=== PATIENT | female | born 2000 | race Caucasian/White ===

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

== ENCOUNTER 2020-09-25 14:53 | Emergency (ER) | payer BC ==
[2020-09-25 15:08] VITALS: BP 115/79; PULSE 62
[2020-09-25] MEDS ORDERED: Sodium Chloride 0.9% 10 ML Syringe FLUSH PRN (15:39)
--- NOTE | 2020-09-25 16:45 | EDM.PDOC ---
ED HPI GENERAL MEDICAL PROBLEM - General Chief Complaint: [employer] Problem Stated Complaint: MISCARRIAGE PASSING LARGE CLOTS Time Seen by Provider: 09/25/20 15:38 Source of Information: Reports: Patient History Limitations: Reports: No Limitations - History of Present Illness INITIAL COMMENTS - FREE TEXT/NARRATIVE: 19-year-old female presents to the emergency department with reports of a miscarriage. The patient states that the first day of her last period is June 20, 2020. The patient states that she is approximately 11 weeks along however this would put her at 14 weeks gestation. She states that she was in to see her PROGRAM ADVOCATE, Dr. Blas, on September 09 and ultrasound was not able to find a heartbeat. At that time Dr. Ledbetter notified her that she would likely miscarry in the next week to 2 weeks. The patient states she started cramping and vaginal bleeding last evening at around 4:00. She states that later in the evening she started passing large clots approximately the size of a grapefruit. She states she is certain that she did pass the fetus but has continued with the heavy bleeding and passing of large clots since. She states that she has been saturating a pad once every 45 minutes since then and did call her [employer] and was told to come to the emergency room. She denies any fever, chills, nausea, vomiting or diarrhea. She does admit to feeling dizzy when up and ambulating. She denies any chest pain or palpitations. She denies any urinary symptoms. Lower Abdominal Pain Score (Numeric/FACES): 6 - Related Data Allergies Allergy/AdvReac Type Severity Reaction Status Date / Time No Known Allergies Allergy Verified 09/25/20 15:04 Home Meds: Home Meds . 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 ED EXAM - Physical Exam Exam: See Below Exam Limited By: No Limitations General Appearance: Alert, WD/WN, No Apparent Distress Ears: Normal External Exam, Hearing Grossly Normal Nose: Normal Inspection Throat/Mouth: Normal Inspection, Normal Lips, Normal Voice, No Airway Compromise Head: Atraumatic Neck: Normal Inspection, Supple Respiratory/Chest: No Respiratory Distress, Lungs Clear, Normal Breath Sounds, No Accessory Muscle Use, Chest Non-Tender Cardiovascular: Normal Peripheral Pulses, Regular Rate, Rhythm, No Murmur GI/Abdominal Exam: Normal Bowel Sounds, Soft, Non-Tender, No Distention Rectal Exam: Deferred (Female) Exam: Normal Bimanual Exam, Normal External Exam, Vaginal Bleeding, Other (Vaginal bleeding is controlled was able to clean the vaginal canal and see the cervical os. There does appear to be a clot at the cervical os at this time.). No: Normal Speculum Exam Back Exam: Normal Inspection Extremities: Normal Inspection, No Pedal Edema, Normal Capillary Refill Neurological: Alert, Oriented, Normal Cognition Psychiatric: Normal Affect, Normal Mood Skin Exam: Warm, Dry, Intact, Normal Color, No Rash Lymphatic: No Adenopathy Course - Vital Signs Text/Narrative:: Patient presents with complaints of having a miscarriage. She states she has been to see her [employer] on September 09, 2020 and was told that she likely would not miscarry within the next week or 2. She did develop cramping and heavy vaginal bleeding that started late yesterday afternoon. She states that she has been saturating a pad once every 45 minutes since as well as passing large clots. She states she did pass the fetus last evening. She has been taking ibuprofen for the cramping however she states it only lasts about 30 minutes. I have ordered a CBC, transvaginal ultrasound, ordered for a saline lock, hCG quantitative, and ABO/Rh type. Last Recorded V/S: Last Vital Signs Temp 96.7 F L 09/25/20 15:04 Pulse 62 09/25/20 15:04 Resp 18 09/25/20 15:04 BP 115/79 09/25/20 15:04 Pulse Ox 100 09/25/20 15:04 - Orders/Labs/Meds Orders: Active Orders 24 hr Category Date Time Status PATIENT RETYPE [BBK] Routine Lab 09/25/20 17:54 Ordered Sodium Chloride 0.9% [Saline Flush] Med 09/25/20 15:39 Active 10 ml FLUSH ASDIRECTED PRN Saline Lock Insert [OM.PC] Stat Oth 09/25/20 15:39 Ordered Medication Orders Sodium Chloride (Sodium Chloride 0.9% 10 Ml Syringe) 10 ml FLUSH ASDIRECTED PRN PRN Reason: Keep Vein Open Last Admin: 09/25/20 15:56 Dose: 10 ml Documented by: BAILEY Labs: Laboratory Tests 09/25/20 09/25/20 09/25/20 Range/Units 15:53 15:53 15:53 WBC 7.27 (3.98-10.04) K/mm3 RBC 4.03 (3.98-5.22) M/mm3 Hgb 11.9 (11.2-15.7) gm/dl Hct 36.8 (34.1-44.9) % MCV 91.3 (79.4-94.8) fl MCH 29.5 (25.6-32.2) pg MCHC 32.3 (32.2-35.5) g/dl RDW Std Deviation 43.6 (36.4-46.3) fL Plt Count 179 L (182-369) K/mm3 MPV 10.4 (9.4-12.3) fl HCG, Quant 2931.0 mIU/mL Blood Type O POSITIVE Meds: Medications Generic Name Dose Route Start Last Admin Trade Name Freq PRN Reason Stop Dose Admin Sodium Chloride 10 ml 09/25/20 15:39 09/25/20 15:56 Sodium Chloride 0.9% 10 Ml Syringe FLUSH 10 ml ASDIRECTED PRN Administration Keep Vein Open - Re-Assessments/Exams Free Text/Narrative Re-Assessment/Exam: 09/25/20 17:13 Transvaginal ultrasound radiologist impression: 1. Findings felt compatible with blood and blood clot within the endometrial and endocervical canal. No intrauterine gestational sac is seen. 2. Mild amount of fluid within the pelvis. 3. No additional abnormality is appreciated within the adnexa. I have performed a routine pelvic exam. The patient has a moderate amount of bleeding however I was able to clean the vaginal canal and easily see the cervix. There does appear to be a clot in the cervical os and no active bleeding is noted. 09/25/20 17:15 Hematology reveals a WBC of 7.27, hemoglobin 11.9, hematocrit 36.8, platelet count 179, hCG quantitative 2931.[address] Ledbetter and notified her of the lab results as well as the results of the pelvic exam. The patient has only needed to change her pad 1 time since she has been here. Patient has been here approximately an hour and 1/2 to 2 hours. At this time the bleeding has seemed to slow down and patient's labs and vitals have been stable. Patient has not been tachycardic while in the emergency department. Dr. Ledbetter states at this time it would be safe to discharge her to home with return precautions. I am still waiting on an ABO/Rh type. Once I have those results back I will likely discharge her to home. 09/25/20 17:56 Patient is O+. She will be discharged to home. Departure - Departure Time of Disposition: 17:56 Disposition: Home, Self-Care 01 Clinical Impression: Miscarriage - Discharge Information Instructions: Miscarriage, [id number], Managing Loss Referrals: Judy Ledbetter MD [Primary Care Provider] - Forms: ED Department Discharge Additional Instructions: You were seen in the emergency department today with a miscarriage. Labs, and an ultrasound were completed. At this time your hemoglobin level is stable. Your bleeding did slow down while in the emergency department. There does appear to be a clot in your cervix at this time. You will eventually passed this. I did speak with Dr. Ledbetter and she states that it would be okay to s end you home as she does not believe that surgery is needed at this time. However, you will need to return to the emergency department if you are saturating a full-size maxi pad every hour for greater than 2 hours. Your Rh factor was O+. You do not require RhoGam. Keep your regularly scheduled appointment with Dr. Crowell for October 02. Return to the ER should your condition worsen or change. Go home and rest and drink plenty of fluids to stay hydrated and keep your blood pressure up. Sepsis Event Note (ED) - Evaluation Sepsis Screening Result: No Definite Risk - Focused Exam Vital Signs: Vital Signs Temp Pulse Resp BP Pulse Ox 09/25/20 15:04 96.7 F L 62 18 115/79 100 - My Orders Last 24 Hours: My Active Orders 09/25/20 15:39 Sodium Chloride 0.9% [Saline Flush] 10 ml FLUSH ASDIRECTED PRN Saline Lock Insert [OM.PC] Stat 09/25/20 17:54 PATIENT RETYPE [BBK] Routine - Assessment/Plan Last 24 Hours: My Active Orders 09/25/20 15:39 Sodium Chloride 0.9% [Saline Flush] 10 ml FLUSH ASDIRECTED PRN Saline Lock Insert [OM.PC] Stat 09/25/20 17:54 PATIENT RETYPE [BBK] Routine
--- NOTE | 2020-09-25 16:46 | US ---
First trimester obstetrical ultrasound: Multiple real-time images were obtained transvaginally. Uterus is retroverted. There is material within the endometrial cavity which extends into the endocervical cavity presumably due to blood and blood clot. Endometrial thickness measures 1.9 cm. No intrauterine gestational sac is seen. There is a mild amount of low signal fluid within the pelvis. Ovaries show no discrete abnormality. Impression: 1. Findings felt compatible with blood and blood clot within the endometrial and endocervical canal. No intrauterine gestational sac is seen. 2. Mild amount of fluid within the pelvis. 3. No additional abnormality is appreciated within the adnexa. Diagnostic code #3
== END 2020-09-25 18:09 | disposition home or self-care (01) ==
LOC: JD.ED 14:53
DX: O03.9 Complete or unspecified spontaneous abortion without complication (principal)
CPT/HCPCS: 36415; 76817; 76817-26; 84702; 85027; 86900; 86901; 99283; 99284-25

== ENCOUNTER 2022-05-13 22:04 | Emergency (ER) | payer BC ==
[2022-05-13 22:38] VITALS: BP 110/64; PULSE 64
[2022-05-13] MEDS ORDERED: Sodium Chloride 0.9% 10 ML Syringe FLUSH PRN (23:09)
[2022-05-14 00:18] LABS: CORONAVIRUS COVID-19 NAA NEGATIVE (NEGATIVE)
== END 2022-05-14 01:22 | disposition home or self-care (01) ==
LOC: JD.ED 22:04
DX: R10.31 Right lower quadrant pain (principal); J06.9 Acute upper respiratory infection, unspecified; Z20.822 Contact with and (suspected) exposure to COVID-19
CPT/HCPCS: 0241U; 36415; 71045; 76705; 80053; 81001; 85025; 86140; 99284; J3490

== ENCOUNTER 2022-06-04 15:43 | Emergency (ER) | payer BC ==
[2022-06-04 16:07] VITALS: BP 106/67
[2022-06-04] MEDS ORDERED: Sodium Chloride 0.9% 10 ML Syringe FLUSH PRN (16:14)
[2022-06-04 16:54] LABS: ESTIMATED GFR 107 mL/min (>60)
[2022-06-04 19:56] VITALS: PULSE 85
== END 2022-06-04 19:55 | disposition home or self-care (01) ==
LOC: JD.ED 15:43
DX: R60.0 Localized edema (principal)
CPT/HCPCS: 36415; 80053; 85025; 86140; 93970; 99284; J3490; 99283

== ENCOUNTER 2022-08-20 13:28 | Inpatient (IN) | payer OTHER, BC ==
[2022-08-20] MEDS ORDERED: Calcium Carbonate 500 MG Tab.Chew PO PRN (15:05)
[2022-08-20] MEDS ORDERED: Nalbuphine 10 MG/0.5 ML Syringe IVPUSH PRN (15:05)
[2022-08-20] MEDS ORDERED: Sodium Chloride 0.9% 10 ML Syringe FLUSH PRN (15:05)
[2022-08-20] MEDS ORDERED: Ondansetron 4 MG/2 ML SDV IVPUSH PRN (15:05)
[2022-08-20] MEDS ORDERED: Oxytocin/Lactated Ringers 10 UNIT/1,000 ML BAG IV SCH ×2 (15:15)
[2022-08-20] MEDS ORDERED: Ampicillin 2 GM in Sodium Chloride 0.9% 100 ML IV ONE (15:30)
[2022-08-20] MEDS: Lactated Ringers 1,000 ML IV SCH ×3 (16:04→22:16)
[2022-08-20] MEDS ORDERED: Bupivacaine/fentaNYL/NS 100 ML Bag EPIDUR PRN (16:56)
[2022-08-20] MEDS ORDERED: ePHEDrine 50 MG/ML SDV IVPUSH PRN (16:56)
[2022-08-20] MEDS ORDERED: fentaNYL 100 MCG/2 ML SDV EPIDUR PRN (16:56)
[2022-08-20] MEDS ORDERED: diphenhydrAMINE 50 MG/ML SDV IVPUSH PRN (16:56)
[2022-08-20] MEDS ORDERED: Bupivacaine 0.25% 10 ML SDV ONE (18:00)
[2022-08-20] MEDS ORDERED: Lidocaine 1% 10 ML MDV ONE (18:00)
[2022-08-20] MEDS: Ampicillin 1 GM in Sodium Chloride 0.9% 100 ML IV SCH (19:28)
[2022-08-20] MEDS ORDERED: Sodium Chloride 0.9% 10 ML Syringe FLUSH SCH (21:00)
[2022-08-21] MEDS ORDERED: Hydrocortisone Acetate 25 MG Supp RECTAL PRN (00:05)
[2022-08-21] MEDS ORDERED: Oxytocin/Lactated Ringers 10 UNIT/1,000 ML BAG IV SCH (00:05)
[2022-08-21] MEDS ORDERED: Benzocaine/Menthol 20%-0.5% Spray 78 GM Cannister TOP PRN (00:05)
[2022-08-21] MEDS ORDERED: Magnesium Hydroxide 400 MG/5 ML Susp 30 ML Cup PO PRN (00:05)
[2022-08-21] MEDS: Witch Hazel Medicated Pads 40/Jar TOP PRN (00:37)
[2022-08-21] MEDS: Acetaminophen 325 MG Tab PO PRN ×2 (00:38→12:55)
[2022-08-21] MEDS: Ibuprofen 600 MG Tab PO PRN ×2 (00:39→08:06)
[2022-08-21] MEDS: Docusate Sodium 100 MG Cap PO PRN (00:39)
[2022-08-21] MEDS: Ampicillin 1 GM in Sodium Chloride 0.9% 100 ML IV SCH (02:15)
[2022-08-21] MEDS: Ferrous Sulfate 324 MG Tab.EC PO SCH (08:06)
[2022-08-21] MEDS: Prenatal Multivitamin with Calcium/Folic Acid/Iron Tab PO SCH (08:06)
[2022-08-22] MEDS: Ibuprofen 600 MG Tab PO PRN (02:46)
[2022-08-22] MEDS: Ferrous Sulfate 324 MG Tab.EC PO SCH (08:01)
[2022-08-22] MEDS: Prenatal Multivitamin with Calcium/Folic Acid/Iron Tab PO SCH (08:01)
[2022-08-22] MEDS: Docusate Sodium 100 MG Cap PO PRN (09:00)
[2022-08-22 09:50] VITALS: BP 115/67; PULSE 64
[2022-08-22] MEDS: Witch Hazel Medicated Pads 40/Jar TOP PRN (12:37)
== END 2022-08-22 13:17 | disposition home or self-care (01) | DRG 806 ==
LOC: JD.OBCHECK 13:28 → JD.OB 13:32 → JD.OBCHECK 16:37 → OBSVTOIN 22:28 → JD.OB 22:29
PROVIDERS: ADMIT Obstetrics & Gynecology; ATTEND Obstetrics & Gynecology
PROC: 10E0XZZ Delivery of Products of Conception, External Approach (ICD-10-PCS; principal; 2022-08-20)
PROC: 0KQM0ZZ Repair Perineum Muscle, Open Approach (ICD-10-PCS; 2022-08-20)
PROC: 10907ZC Drainage of Amniotic Fluid, Therapeutic from Products of Conception, Via Natural or Artificial Opening (ICD-10-PCS; 2022-08-20)
PROC: 0UQMXZZ Repair Vulva, External Approach (ICD-10-PCS; 2022-08-20)
PROC: 3E0R3BZ Introduction of Anesthetic Agent into Spinal Canal, Percutaneous Approach (ICD-10-PCS; 2022-08-20)
PROC: 00HU33Z Insertion of Infusion Device into Spinal Canal, Percutaneous Approach (ICD-10-PCS; 2022-08-20)
DX: O99.824 Streptococcus B carrier state complicating childbirth (principal); D62 Acute posthemorrhagic anemia; Z37.0 Single live birth; O98.32 Other infections with a predominantly sexual mode of transmission complicating childbirth; O70.1 Second degree perineal laceration during delivery; Z3A.38 38 weeks gestation of pregnancy; A60.09 Herpesviral infection of other urogenital tract; Z86.16 Personal history of COVID-19
CPT/HCPCS: 01967; 36415; 51702; 59025; 59409; 85025; 86592; A9270-GY; J0290; J2590; J3010; J3490; J7120

== ENCOUNTER 2022-11-03 03:31 | Emergency (ER) | payer BC, OTHER ==
[2022-11-03] MEDS ORDERED: Metoclopramide 10 MG/2 ML SDV IVPUSH ONE (03:52)
[2022-11-03] MEDS ORDERED: HYDROmorphone 1 MG/ML Syringe IVPUSH ONE (03:52)
[2022-11-03] MEDS ORDERED: Ketorolac 30 MG/ML SDV IVPUSH SCH (04:00)
[2022-11-03] MEDS ORDERED: Dextrose 5%-0.9% NaCl 1,000 ML IV SCH (04:00)
[2022-11-03 04:57] VITALS: BP 112/68; PULSE 68
== END 2022-11-03 04:59 | disposition home or self-care (01) ==
LOC: JD.ED 03:31
DX: N13.2 Hydronephrosis with renal and ureteral calculous obstruction (principal); Z86.16 Personal history of COVID-19
CPT/HCPCS: 74176; 96374; 96375; 99284; J1170; J1885; J2765